=== PATIENT | female | born 1975 | race Asian ===

== ENCOUNTER → 2016-10-09 | Outpatient (CLI) | payer OTHER | LOC: CIMAGING 11:10 | DX: Z12.31 Encounter for screening mammogram for malignant neoplasm of breast (principal) | CPT/HCPCS: G0202 ==

== ENCOUNTER → 2017-03-15 | Outpatient (CLI) | payer OTHER | LOC: CIMAGING 10:27 | PROVIDERS: ATTEND Family Medicine | DX: R10.11 Right upper quadrant pain (principal); R51 Headache; R42 Dizziness and giddiness | CPT/HCPCS: 76705-PO ==

== ENCOUNTER → 2017-04-03 | Outpatient (CLI) | payer OTHER | LOC: FIMAGING 09:01 | PROVIDERS: ATTEND Family Medicine | DX: R10.9 Unspecified abdominal pain (principal); R11.2 Nausea with vomiting, unspecified | CPT/HCPCS: 78227; A9537 ==

== ENCOUNTER 2017-09-01 22:46 | Observation (INO) | payer OTHER ==
--- NOTE | 2017-09-01 22:48 | EDPHY ---
H & P Time Seen by Provider: 09/01/17 23:10 HPI/ROS: HPI CHIEF COMPLAINT: Chest tightness, nausea HISTORY OF PRESENT ILLNESS: Patient very pleasant 41-year-old female she presents emergency room with tightness in her chest. She states this been going on intermittently over the past 3 weeks. She has had associated nausea with it but no vomiting. She reports to me she saw her primary care doctor Dr. Bocanegra for this. She is referred to a inorganic chemist. She saw the inorganic chemist on Sunday and had what she describes a normal ECG, however was referred to have a stress test and echocardiogram done. Her stress test scheduled for September 13. Her echocardiogram is scheduled for next week. She decided come to the emergency room tonight as she is having ongoing chest tightness described as an achy sensation in her chest. Does not radiate anywhere. Additionally she reports that she has had nausea. For which she has been taking ranitidine but has not really been helping. She denies any pleuritic pain or significant shortness of breath. Denies focal numbness or tingling denies focal weakness. Past Medical History: Denies significant medical history except for anxiety Past Surgical History: A benign breast lump removed out of the left breast Social History: Denies drugs alcohol tobacco. Family History: Denies significant family cardiovascular risk factors. PCP: DR. BOCANEGRA PIPELINE ENGINEER: See [facility]. ROS REVIEW OF SYSTEMS: A comprehensive 10 point review of systems is otherwise negative aside from elements mentioned in the history of pres negativ ent illness. Exam Constitutional anxious, appears well nontoxic no acute distress, triage nursing summary reviewed, vital signs reviewed, awake/alert. Vital signs stable Eyes normal conjunctivae and sclera, EOMI, PERRLA. HENT normal inspection, atraumatic, moist mucus membranes, no epistaxis, neck supple/ no meningismus, no raccoon eyes. Respiratory clear to auscultation bilaterally, normal breath sounds, no respiratory distress, no wheezing. Cardiovascular rate normal, regular rhythm, no murmur, no edema, distal pulses normal. Gastrointestinal soft, non-tender, no rebound, no guarding, normal bowel sounds, no distension, no pulsatile mass. Genitourinary no CVA tenderness. Musculoskeletal no midline vertebral tenderness, full range of motion, no calf swelling, no tenderness of extremities, no meningismus, good pulses, neurovascularly intact. Skin pink, warm, & dry, no rash, skin atraumatic. Neurologic awake, alert and oriented x 3, AAOx3, moves all 4 extremities equally, motor intact, sensory intact, CN II-XII intact, normal cerebellar, normal vision, normal speech. Psychiatric ankle Heme/Lymph/Immune no lymphadenopathy. Differential diagnosis includes but is not limited to: ACS, atypical chest pain , pneumothorax, pneumonia, pulmonary embolism, aortic dissection, congestive heart failure, tumor, musculoskeletal pain, esophageal pain, GERD, peptic ulcer disease, pancreatitis Medical Decision Making: Plan for this patient IV establishment with blood draw , full director of cardiac cath lab, give full-dose aspirin, nitroglycerin to see if it helps with her discomfort in her chest, obtain EKG, troponin, D-dimer, re- evaluate. Re-evaluation: EKG interpretation by me on record in [employer] system. Impression: Time of EKG 2257, sinus rhythm rate of 94 Q-waves noted inferior leads subtle into, more pronounced and 3, subtle in AVF. No ST elevation. No significant ST depression. No significant T-wave abnormalities. Otherwise unremarkable EKG. 2316: Patient received full-dose aspirin and 1 dose of nitroglycerin that did not help her chest discomfort. I have ordered her IV Pepcid and 0.5 mg IV Ativan she does appear anxious. 2345: Patient's workup here in emergency room essentially unremarkable. She has negative troponin negative D-dimer. Nonischemic EKG. She does relate to me that her inorganic chemist would like her to have a stress echo test. For this reason I do think she is low risk but given that she is due to have echo and stress test I will admitted to the hospitalist for this given that she is in the emergency room with chest discomfort which is unexplained. She has had intermittently for 3 weeks. It is reassuring her EKG does not show any acute ischemia and I also reassuring that she does have a high troponin or positive D- dimer. I spoke with the hospitalist service Dr. Sherwood who agrees to admit the patient. Source: Patient Constitutional: Initial Vital Signs Heart Rate 100 09/01/17 23:09 Respiratory Rate 18 09/01/17 23:09 Blood Pressure 114/79 09/01/17 23:09 O2 Sat (%) 96 09/01/17 23:09 O2 Delivery Mode Room Air Allergies/Adverse Reactions: amoxicillin Allergy (Verified 09/01/17 23:07) Home Medications: Medication Instructions Recorded Acetaminophen [Tylenol 325mg (*)] 650 mg PO Q4HRS PRN tab 09/02/17 DULoxetine [Cymbalta 60 MG (*)] 60 mg PO DAILY 09/02/17 Ranitidine HCl 150 mg PO BID 09/02/17 acetaZOLAMIDE [Diamox] 250 mg PO HS 09/02/17 Medical Decision Making - Data Points Laboratory Results: Laboratory Results 09/01/17 22:55 09/01/17 22:55 Medications Given: Discontinued Medications Aspirin (Aspirin) 324 mg PO EDNOW ONE Stop: 09/01/17 22:55 Last Admin: 09/01/17 23:05 Dose: 324 mg Diphenhydramine/Al Hydrox/Mg Hydrox (Cbm Suspension) 15 ml PO Q4HRS PRN PRN Reason: Pain, Mild Stop: 03/01/18 02:44 Last Admin: 09/02/17 03:21 Dose: 15 ml Enoxaparin Sodium (Lovenox) 40 mg SC DAILY [facility] Stop: 03/01/18 08:59 Last Admin: 09/02/17 10:46 Dose: Not Given Famotidine (Pepcid) 20 mg IVP EDNOW ONE Stop: 09/01/17 23:17 Last Admin: 09/01/17 23:27 Dose: 20 mg Sodium Chloride (Ns) 1,000 mls @ 0 mls/hr IV EDNOW ONE; Wide Open PRN Reason: Protocol Stop: 09/01/17 22:55 Last Admin: 09/01/17 23:04 Dose: 1,000 mls Sodium Chloride (Ns) 1,000 mls @ 150 mls/hr IV CONT SAY Stop: 03/01/18 08:44 Last Admin: 09/02/17 08:55 Dose: 1,000 mls Lorazepam (Ativan Injection) 0.5 mg IVP EDNOW ONE Stop: 09/01/17 23:17 Last Admin: 09/01/17 23:22 Dose: 0.5 mg Nitroglycerin (Nitrostat) 0.4 mg SL Q5M PRN PRN Reason: Chest Pain Last Admin: 09/01/17 23:09 Dose: 0.4 mg Ondansetron HCl (Zofran) 4 mg IVP EDNOW ONE Stop: 09/01/17 23:09 Last Admin: 09/01/17 23:11 Dose: 4 mg Departure - Departure Disposition: [facility] Inpatient Acute Clinical Impression: Chest pain Qualifiers: Chest pain type: unspecified Qualified Code(s): R07.9 - Chest pain, unspecified Condition: Good
[2017-09-01] MEDS ORDERED: NS 1,000 ML IV ONE (22:54)
[2017-09-01] MEDS ORDERED: ASPIRIN 81 MG CHEWABLE TAB PO ONE (22:54)
[2017-09-01] MEDS ORDERED: NITROGLYCERIN 0.4 MG BTL SL PRN (22:54)
--- NOTE | 2017-09-01 23:00 | CPEKG ---
Heart Rate: 94 RR Interval: 638 P-R Interval: 140 QRSD Interval: 76 QT Interval: 340 QTC Interval: 426 P Preston: 36 QRS Preston: 19 T Wave Preston: 32 EKG Severity - ABNORMAL ECG - EKG Impression: SINUS RHYTHM EKG Impression: PROBABLE INFERIOR INFARCT, OLD Electronically Signed By: Mansoor Wilkins 05-Sep-2017 08:53:22
[2017-09-01] MEDS ORDERED: ONDANSETRON 4 MG/2 ML VIAL ONE (23:01)
[2017-09-01 23:05] LABS: PLATELET COUNT 272 10^3/uL (150-400)
[2017-09-01] MEDS ORDERED: ONDANSETRON 4 MG/2 ML VIAL IVP ONE (23:08)
[2017-09-01 23:15] LABS: INR 0.97 (0.83-1.16); PROTIME(PATIENT) 12.8 SEC (12.0-15.0)
[2017-09-01] MEDS ORDERED: LORazepam 2 MG/ML INJ IVP ONE (23:16)
[2017-09-01] MEDS ORDERED: FAMOTIDINE 20 MG/2 ML SDV IVP ONE (23:16)
[2017-09-01 23:21] LABS: CREATINE KINASE 68 IU/L (0-156)
[2017-09-01] MEDS ORDERED: ACETAMINOPHEN 325 MG TAB PO PRN (23:44)
[2017-09-01] MEDS ORDERED: ONDANSETRON 4 MG/2 ML VIAL IVP PRN (23:44)
[2017-09-01] MEDS ORDERED: ONDANSETRON DISINTEGRATING 4 MG TAB PO PRN (23:44)
--- NOTE | 2017-09-02 01:42 | PDGENHP ---
History and Physical - Chief Complaint Chest pain - History of Present Illness 41 yo F w/ hx of anxiety presents w/ chest pain. Patient explain chest tightness has been ongoing intermittently for about 3 weeks. Her PCP referred her to a cargo station worker who ordered a stress test and TTE. Her stress test is scheduled for 09/13. She decided to come to the ED today for recurrence of similar symptoms: non-radiating achy sensation in her chest and upper abdomen with some dyspnea. She also complains of chills. She denies vomiting and diarrhea. After our discussion it seems she has been having on and off symptoms for several months. She had a HIDA scan last April that was negative for gallbladder pathology per her report. History Information - Allergies/Home Medication List Allergies/Adverse Reactions: amoxicillin Allergy (Verified 09/01/17 23:07) Home Medications: ACETAZOLAMIDE 09/01/17 [Last Taken Unknown] Duloxetine HCl 09/01/17 [Last Taken Unknown] Zantac 09/01/17 [Last Taken Unknown] I have personally reviewed and updated: family history, medical history - Past Medical History no pertinent PMH Additional medical history: Anxiety - Surgical History Additional surgical history: Benign breast lump removed from L breast - Family History Additional family history: Denies family hx of CAD - Social History Smoking Status: Never smoked Review of Systems Review of Systems: ROS: 10pt was reviewed & negative except for what was stated in HPI & below Physical Exam Physical Exam: Temp Pulse Resp BP Pulse Ox 36.5 C 91 13 100/73 95 09/01/17 23:32 09/02/17 01:35 09/02/17 01:35 09/02/17 01:35 09/02/17 01:35 Constitutional: appears nourished, uncomfortable Eyes: PERRL, EOMI Ears, Nose, Mouth, Throat: moist mucous membranes, no oral mucosal ulcers Cardiovascular: regular rate and rhythym, no murmur, rub, or gallop Respiratory: no respiratory distress, clear to auscultation Gastrointestinal: normoactive bowel sounds, soft, non-tender abdomen, No bustillo' s sign, No guarding, No rebound, No distension Skin: warm, normal color Musculoskeletal: full muscle strength, no muscle tenderness Neurologic: AAOx3, CN II-XII Intact Psychiatric: interacting appropriately, not anxious Lab Data & Imaging Review 09/01/17 22:55 09/01/17 22:55 WBC 10.06 10^3/uL (3.80-9.50) H 09/01/17 22:55 RBC 5.21 10^6/uL (4.18-5.33) 09/01/17 22:55 Hgb 14.1 g/dL (12.6-16.3) 09/01/17 22:55 Hct 42.9 % (38.0-47.0) 09/01/17 22:55 MCV 82.3 fL (81.5-99.8) 09/01/17 22:55 MCH 27.1 pg (27.9-34.1) L 09/01/17 22:55 MCHC 32.9 g/dL (32.4-36.7) 09/01/17 22:55 RDW 13.1 % (11.5-15.2) 09/01/17 22:55 Plt Count 272 10^3/uL (150-400) 09/01/17 22:55 MPV 10.1 fL (8.7-11.7) 09/01/17 22:55 Neut % (Auto) 52.3 % (39.3-74.2) 09/01/17 22:55 Lymph % (Auto) 35.2 % (15.0-45.0) 09/01/17 22:55 [place] % (Auto) 8.4 % (4.5-13.0) 09/01/17 22:55 Eos % (Auto) 3.5 % (0.6-7.6) 09/01/17 22:55 Baso % (Auto) 0.4 % (0.3-1.7) 09/01/17 22:55 Nucleat RBC Rel Count 0.0 % (0.0-0.2) 09/01/17 22:55 Absolute Neuts (auto) 5.26 10^3/uL (1.70-6.50) 09/01/17 22:55 Absolute Lymphs (auto) 3.54 10^3/uL (1.00-3.00) H 09/01/17 22:55 Absolute Monos (auto) 0.85 10^3/uL (0.30-0.80) H 09/01/17 22:55 Absolute Eos (auto) 0.35 10^3/uL (0.03-0.40) 09/01/17 22:55 Absolute Basos (auto) 0.04 10^3/uL (0.02-0.10) 09/01/17 22:55 Absolute Nucleated RBC 0.00 10^3/uL (0-0.01) 09/01/17 22:55 Immature Gran % 0.2 % (0.0-1.1) 09/01/17 22:55 Immature Gran # 0.02 10^3/uL (0.00-0.10) 09/01/17 22:55 PT 12.8 SEC (12.0-15.0) 09/01/17 22:55 INR 0.97 (0.83-1.16) 09/01/17 22:55 APTT 26.9 SEC (23.0-38.0) 09/01/17 22:55 D-Dimer < 0.27 ug/mLFEU (0.00-0.50) 09/01/17 22:55 Sodium 141 mEq/L (135-145) 09/01/17 22:55 Potassium 3.7 mEq/L (3.5-5.2) 09/01/17 22:55 Chloride 110 mEq/L (97-110) 09/01/17 22:55 Carbon Dioxide 19 mEq/l (22-31) L 09/01/17 22:55 Anion Gap 12 mEq/L (8-16) 09/01/17 22:55 BUN 10 mg/dL (7-23) 09/01/17 22:55 Creatinine 0.7 mg/dL (0.6-1.0) 09/01/17 22:55 Estimated GFR > 60 09/01/17 22:55 Glucose 106 mg/dL (70-100) H 09/01/17 22:55 Calcium 8.8 mg/dL (8.5-10.4) 09/01/17 22:55 Magnesium 1.8 mg/dL (1.6-2.3) 09/01/17 22:55 Total Bilirubin 0.2 mg/dL (0.1-1.4) 09/01/17 22:55 Conjugated Bilirubin 0.2 mg/dL (0.0-0.5) 09/01/17 22:55 Unconjugated Bilirubin 0.0 mg/dL (0.0-1.1) 09/01/17 22:55 AST 19 IU/L (14-46) 09/01/17 22:55 ALT 33 IU/L (9-52) 09/01/17 22:55 Alkaline Phosphatase 83 IU/L (38-126) 09/01/17 22:55 Creatine Kinase 68 IU/L (0-156) 09/01/17 22:55 CK-MB (CK-2) Fraction 0.79 ng/mL (0.00-4.55) 09/01/17 22:55 Troponin I < 0.012 ng/mL (0.000-0.034) 09/01/17 22:55 NT-Pro-B Natriuret Pep < 11 pg/mL (0-125) 09/01/17 22:55 Total Protein 6.7 g/dL (6.3-8.2) 09/01/17 22:55 Albumin 3.7 g/dL (3.5-5.0) 09/01/17 22:55 Lipase 320 IU/L (23-300) H 09/01/17 22:55 Beta HCG, Qual NEGATIVE 09/01/17 22:55 Urine Color YELLOW 09/01/17 23:40 Urine Appearance CLEAR 09/01/17 23:40 Urine pH 5.5 (5.0-7.5) 09/01/17 23:40 Ur Specific [place] <= 1.005 (1.002-1.030) 09/01/17 23:40 Urine Protein NEGATIVE (NEGATIVE) 09/01/17 23:40 Urine Ketones NEGATIVE (NEGATIVE) 09/01/17 23:40 Urine Blood NEGATIVE (NEGATIVE) 09/01/17 23:40 Urine Nitrate NEGATIVE (NEGATIVE) 09/01/17 23:40 Urine Bilirubin NEGATIVE (NEGATIVE) 09/01/17 23:40 Urine Urobilinogen 0.2 EU (0.2-1.0) 09/01/17 23:40 Ur Leukocyte Esterase NEGATIVE (NEGATIVE) 09/01/17 23:40 Urine Glucose NEGATIVE (NEGATIVE) 09/01/17 23:40 Imaging Review: Imaging Impressions Chest X-Ray 09/01/17 22:54 Impression: No acute abnormality, or substantial change from 02/09/2010. Visualized and Interpreted Chest x-ray results: Yes Visualized and Interpreted EKG results: Yes EKG Interpretation: Positive for: normal sinsus rhythm, Q waves (Isolated Q wave in lead III) Assessment & Plan Assessment: 41 yo F w/ anxiety presents with chest pain. Plan: 1. Atypical chest pain - Central achy pain present intermittently for 3 weeks. Patient has no significant risk factors for CAD and denies family hx of early CAD. HEART score of 1 (slightly abnormal ECG) denoting very low risk. SENAIT of 0 suggestive of the same. I suspect this is more likely GI related but seems reasonable to rule out cardiac etiology noting patient concern and vague nature of symptoms. LFTs WNL; patient reports normal HIDA scan last April. - Admit for observation - Monitor on telemetry, trend cardiac enzymes - Will order treadmill stress test for the morning - Trial GI cocktail Diet - NPO Code - Full Ppx - LMWH Dispo - Admit under observation status
[2017-09-02] MEDS ORDERED: SUCRALFATE/DIPHENHYDR/MAALOX 240 ML BOTTLE PO PRN (02:45)
[2017-09-02 05:27] LABS: PLATELET COUNT 217 10^3/uL (150-400)
[2017-09-02 08:16] VITALS: RESP 17
[2017-09-02] MEDS ORDERED: NS 1,000 ML IV SCH (08:45)
[2017-09-02] MEDS ORDERED: ENOXAPARIN 40 MG/0.4 ML SYR SC SCH (09:00)
[2017-09-02 11:46] VITALS: BP 101/61; PULSE 85; TEMP 98.1; O2SAT 98
--- NOTE | 2017-09-02 12:05 | CPR ---
[f rep st] NONINVASIVE CARDIAC PROCEDURE REPORT DATE OF PROCEDURE: 09/02/2017 PROCEDURE PERFORMED: Exercise treadmill stress test. INDICATION FOR STRESS TEST: Chest pain. The patient is a pleasant, 41-year-old female who presented with complaints of chest pain. Serial en zymes were negative x2. She consented for exercise treadmill stress test. Prior to onset of exercis e, she complained of 2-4 substernal chest discomfort. She had no other complaints. Baseline ECG was unremarkable. In the setting of normal ECG, decision was made to pursue exercise tr eadmill stress test. She was able to exercise for 11 minutes on a standard Dex protocol. She achi eved a peak heart rate of 173 beats per minute, representing 96% of her maximum predicted heart rate. She continued to have chest discomfort through the first 2/3 of the stress test. Final 1/3 of the stress test, she states her chest symptoms resolved. She did have some mild lower back discomfort th roughout the course of exercise. She denied any complaints of shortness of breath, or dyspnea. She did just complain of fatigue. There were no ECG changes consistent with ischemia. Blood pressure response to exercise was appropri ate. 96% of target heart rate was achieved. CONCLUSION: 1. No evidence of ischemia. 2. Atypical chest discomfort that resolved with exercise. 3. Appropriate blood pressure response to exercise. 4. Normal oxygenation throughout the stress test. /[id number]/MODL
--- NOTE | 2017-09-02 13:49 | ASMTLACE ---
LACE Length of stay for Answers: Less than 1 day current admission Acuity / Level of Answers: No Care: Did the patient have an inpatient admission? # of Emergency department Answers: 1-2 visits in the last 6 months Score: 1 Date Signed: 09/02/2017 01:49 PM Electronically Signed By:Mili Burger RN
--- NOTE | 2017-09-02 13:51 | ASMTCMCOM ---
CM Note CM Note Notes: Chart reviewed. Patient has stress test that was negative. independent no needs identified. CM available should needs arise. Date Signed: 09/02/2017 01:50 PM Electronically Signed By:Mili Burger RN
--- NOTE | 2017-09-02 15:26 | GDS ---
[f rep st] DISCHARGE SUMMARY DISCHARGE DIAGNOSIS: Atypical chest pain. PHYSICAL EXAM: GENERAL: The patient is alert. VITAL SIGNS: Afebrile at 36.7, pulse 85, respirator y rate 17, blood pressure is 101/61. She is saturating 98% on room air. I have seen and evaluated the patient on the day of discharge. HOSPITAL COURSE: The patient is a 41-year-old female who presented to the emergency room with compla ints of intermittent chest pain for approximately 3 weeks. She had been evaluated by her primary car e physician, who had recommended her followup with her scene and lighting design lecturer, but decided to present to the em ergency room prior to that evaluation. During this hospitalization she received a consultation from Cardiology, with a treadmill test being performed. I have discussed the patient's results with Dr. Ronald grullon of Cardiology. He states that she did very well on her treadmill test, and has no evidence of is chemic or cardiac involvement causing her atypical chest pain. The patient is comfortable with this and will be discharged home, to followup in the outpatient setting with her primary care physician. DISCHARGE MEDICATIONS: Please refer to EMR form. I have not adjusted the patient's previously presc ribed home medications. FOLLOWUP: Will be with primary care physician in the next 2-3 days. /[id number]/MODL
[2017-09-02] MEDS ORDERED: acetaZOLAMIDE 250 MG TAB PO SCH (21:00)
[2017-09-02] MEDS ORDERED: FAMOTIDINE 20 MG TAB PO SCH (21:00)
[2017-09-02] MEDS ORDERED: NON-FORMULARY NEW DRUG (Ranitidine Hcl [Ranitidine Hcl] 150 MG) PO SCH (21:00)
[2017-09-03] MEDS ORDERED: DULoxetine 60 MG CAP PO SCH (09:00)
== END 2017-09-02 13:58 | disposition home or self-care (01) ==
LOC: CED 22:46 → CEDHOLD 23:44 → UNDOADMOB 23:44 → F3E 09-02 02:03
PROVIDERS: ADMIT Student in an Organized Health Care Education/Training Program; ATTEND Student in an Organized Health Care Education/Training Program
DX: R07.9 Chest pain, unspecified (principal); E86.9 Volume depletion, unspecified; Z88.0 Allergy status to penicillin
CPT/HCPCS: 71045; 93005; 93017; 96361; 96374; 96375; 99285; G0378; 80048-PO; 80076-PO; 81003-PO; 82550-PO; 82553-PO; 83690-PO; 83735-PO; 83880-PO; 84100-PO; 84484-PO; 84703-PO; 85025-PO; 85378-PO; 85610-PO; 85730-PO; J1650; J2060; J2405

== ENCOUNTER → 2018-01-25 | Outpatient (CLI) | payer OTHER | LOC: CIMAGING 14:29 | PROVIDERS: ATTEND Family Medicine | DX: Z12.31 Encounter for screening mammogram for malignant neoplasm of breast (principal) ==

== ENCOUNTER → 2018-03-25 | Outpatient (CLI) | payer OTHER | LOC: CIMAGING 10:34 | PROVIDERS: ATTEND Family Medicine | DX: N83.291 Other ovarian cyst, right side (principal); N94.6 Dysmenorrhea, unspecified | CPT/HCPCS: 76856-PO ==

== ENCOUNTER → 2018-04-12 | Outpatient (CLI) | payer OTHER ==
[~2018-04-12] MED LIST: IOPAMIDOL (ISOVUE-300) 100 ML BTL ONE
== END ==
LOC: CIMAGING 14:11
PROVIDERS: ATTEND Family Medicine
DX: N83.01 Follicular cyst of right ovary (principal)
CPT/HCPCS: 74177-PO; Q9967

== ENCOUNTER → 2018-05-28 | Outpatient (CLI) | payer OTHER | LOC: CIMAGING 12:40 | PROVIDERS: ATTEND Family Medicine | DX: N83.201 Unspecified ovarian cyst, right side (principal); Z97.5 Presence of (intrauterine) contraceptive device | CPT/HCPCS: 76856-PO ==